=== PATIENT | female | born 1985 | race Hispanic/Latino ===

== ENCOUNTER 2017-08-23 01:17 | Inpatient (IN) | payer SELFPAY ==
[2017-08-23] MEDS ORDERED: Ringers Lactate 1,000 ML IV PRN (03:21)
[2017-08-23 03:47] LABS: RPR Titer ND
[2017-08-23 03:56] LABS: Absolute Lymphocytes (CBC) 2.7 K/uL (0.7-4.9); Absolute Monocytes 0.9 K/uL (0.1-1.3); Absolute Neutrophil 7.7 K/uL (1.8-8.0); Basophils % 0.3 % (0-1.3); Eosinophils % 0.9 % (0-4.4); Hematocrit 33.1 % (36.0-45.0); Lymphocytes % 23.5 % (15.3-44.8); MCH 21.7 pg (27.0-35.0); MPV 10.6 fL (7.6-11.3); Monocytes % 7.9 % (3.3-12.3); RBC Red Blood Cell Count 4.94 M/uL (3.86-4.86)
[2017-08-23 03:57] LABS: Protime INR 0.91
[2017-08-23] MEDS ORDERED: Ringers Lactate 1,000 ML IV SCH (04:00)
[2017-08-23 04:09] LABS: ALT/SGPT 13 U/L (12-78); AST/SGOT 17 U/L (15-37); Albumin 2.8 g/dL (3.4-5.0); Alkaline Phosphatase 200 U/L (45-117); BUN Blood Urea Nitrogen 12 mg/dL (7-18); Bicarbonate 24 mmol/L (21-32); Bilirubin Direct < 0.1 mg/dL (0-0.2); Bilirubin Total 0.3 mg/dL (0.2-1.0); Glucose Level 76 mg/dL (74-106); Potassium 3.6 mmol/L (3.5-5.1); Protein, Total 6.7 g/dL (6.4-8.2); Sodium Level 141 mmol/L (136-145); Uric Acid 4.1 mg/dL (2.6-6.0)
[2017-08-23 04:49] LABS: Blood Morphology Comment NOTED (NOT SEEN); Hypochromasia 1+; Platelet Estimate ADEQ; Polychromasia 1+; Target Cells 1+; Urine White Blood Cell Casts OK
[2017-08-23] MEDS ORDERED: OXYTOCIN/LR 20 UNIT/1,000 ML BAG IV SCH (05:00)
[2017-08-23 06:02] VITALS: BMI 39.6
[2017-08-23] MEDS ORDERED: PROMETHAZINE 25 MG/ML VIAL IV PRN (07:49)
[2017-08-23] MEDS ORDERED: METHYLERGONOVINE 0.2MG/ML AMP IM PRN (07:49)
[2017-08-23] MEDS ORDERED: CARBOPROST TROME 250 MCG/ML IM PRN (07:49)
[2017-08-23] MEDS ORDERED: BUTORPHANOL 1 MG/ML INJ IV PRN (07:49)
[2017-08-23] MEDS ORDERED: LIDOCAINE 2% 20 ML MDV IV ONE (07:50)
[2017-08-23] MEDS ORDERED: Oxycodone HCl/Acetaminophen 1 TAB TAB PO PRN (12:02)
[2017-08-23] MEDS ORDERED: ONDANSETRON 4 MG (ODT) TAB PO PRN (12:02)
[2017-08-23] MEDS ORDERED: ACETAMINOPHEN 500 MG TAB PO PRN (12:02)
[2017-08-23] MEDS ORDERED: DOCUSATE NA/SENNA CONC 1 TAB PO PRN (12:02)
[2017-08-23] MEDS ORDERED: IBUPROFEN 200 MG TAB PO PRN (12:02)
[2017-08-23] MEDS ORDERED: BISACODYL 10 MG RECTAL SUPP RECT PRN (12:02)
[2017-08-23] MEDS ORDERED: Ringers Lactate 2,000 ML IV ONE (12:15)
[2017-08-23] MEDS ORDERED: OXYTOCIN/LR 20 UNIT/1,000 ML BAG IV ONE (12:16)
--- NOTE | 2017-08-23 12:57 | HP ---
Date of Admission: 08/23/2017 History Of Present Illness: Maryana is a 32-year-old, 6, para 2-1-2-3, who presents at 36 w eeks and 6 days gestation with spontaneous rupture of membranes. The patient states that she began e xperiencing leakage of fluid in the middle of the night around midnight, presented to [facility] around 1:30, and was noted to be grossly ruptured. At that time, patient was found to be 1 cm di lated, 50% effaced, -3 station. Patient reports mild contractions. Denies vaginal bleeding. Report s good movement. course has been complicated by history of prior for wh ich she was placed on Bernie weekly injections, however, due to cost and lack of insurance she was un able to pay for these. She has history of prior 3 vaginal births. History see record for f urther details. Past Medical History: Negative. Past Surgical History: Vaginal delivery x3. Social History: to the father of the baby. No tobacco, alcohol, or drug use. Family History: Diabetes mellitus, hypertension, and depression. Physical Examination: Vital Signs: On admission, blood pressure 131/75, pulse of 81, respirations 18. The patient is afeb rile. General: Patient resting comfortably in bed. Head and Neck: Normocephalic, atraumatic. Neck is supple. Heart: Regular rate and rhythm. Respiratory: Symmetric nonlabored breathing. Abdomen: Gravid. Extremities: Bilateral lower extremities. No clubbing, cyanosis, or edema. Vaginal: Normal external genitalia. Vagina is pink, moist, normal rugae. Cervix is 2 cm dilated, 5 0% effaced, minus-3 station. Grossly ruptured. Vertex presentation. heart rate monitoring [facility] heart rate is 145. Accelerations noted. Moderate variability. Category 2 tracing. To co irregular contractions. Pitocin has been started. Now contractions are beginning to be every 2-3 minutes. GBS is negative. White blood cell count 11.3, hemoglobin 10.7, hematocrit 33.1, platelet count 212. Assessment/plan: Maryana is a 32-year-old, 6, para 2-1-2-3 at 36 weeks and 6 days gestation . GBS negative. With spontaneous rupture of membranes. Pitocin has been started for labor augmenta tion. Patient declines epidural. Pain management as needed. Anticipate vaginal . OBBBY Voice ID: [id number]
[2017-08-23 20:49] LABS: RPR (Rapid Plasma Reagin) NON-REACT (NON-REACT)
--- NOTE | 2017-08-23 22:01 | P.OP ---
Date of Service: 08/23/17 Findings and Operative Technique Patient delivered a viable male in cephalic presentationon 08/23/17 at 11: 50AM with a nuchal cord x1 that was easily manually reduced. Once infant was delivered nose and mouth were suctioned with a suction bulb and cord was clamped and cut. was then placed on mother's abdomen for skin to skin bonding. Attention was then turned to the placenta which was removed with gentle traction. Placenta was examined and noted to be intact. Attention was then turned to the midline laceration which was injected with 2% xylocaine and then repaired with a 3.0 vicryl in usual fashion. EBL was 300 cc. Patient tolerated all procedures well. APGARS were 8/9. Weight was found to be 5 lbs 14 ounces. First stage of labor was 12 hours Second stage of labor was 3 minutes.
[2017-08-24 04:45] LABS: Absolute Lymphocytes (CBC) 2.9 K/uL (0.7-4.9); Absolute Monocytes 1.1 K/uL (0.1-1.3); Absolute Neutrophil 9.5 K/uL (1.8-8.0); Basophils % 0.3 % (0-1.3); Eosinophils % 0.9 % (0-4.4); Hematocrit 27.6 % (36.0-45.0); MPV 10.3 fL (7.6-11.3); Monocytes % 8.2 % (3.3-12.3); RBC Red Blood Cell Count 4.09 M/uL (3.86-4.86)
[2017-08-24 04:52] LABS: MCV 67.5 fL (80-100)
[2017-08-24] MEDS ORDERED: Tdap (Diph,Pertuss(Acell),Tet Vac) 0.5 ML SYR IMVAC ONE (08:47)
[2017-08-24 11:51] VITALS: BP 142/82; TEMP 97.9
--- NOTE | 2017-08-24 22:19 | P.DS ---
Admission Date: 08/23/17 Discharge Date: 08/25/17 Disposition: ROUTINE DISCHARGE Discharge Condition: GOOD Brief History of Present Illness: see h&p Hospital Course: Patient did well following delivery. Her BP is in normal range. Her pain is well controlled. No issues. Bonding well with the baby. Vital Signs/Physical Exam: Temp Pulse Resp BP Pulse Ox 97.9 F 93 H 18 142/82 H 08/24/17 11:50 08/24/17 11:50 08/24/17 11:50 08/24/17 11:50 General: Alert, In no apparent distress HEENT: Atraumatic Neck: Supple Respiratory: Normal air movement Cardiovascular: No edema, Normal pulses Gastrointestinal: Soft and benign (fundus firm) Musculoskeletal: No clubbing, No swelling Integumentary: No rashes, No breakdown Neurological: Normal gait, Normal speech Laboratory Data at Discharge: WBC 13.7 K/uL (4.3-10.9) H D 08/24/17 04:16 Hgb 9.0 g/dL (12.0-15.0) L 08/24/17 04:16 Hct 27.6 % (36.0-45.0) L D 08/24/17 04:16 Plt Count 190 K/uL (152-406) 08/24/17 04:16 PT 10.7 SECONDS (9.5-12.5) 08/23/17 02:45 INR 0.91 08/23/17 02:45 APTT 30.1 SECONDS (24.3-36.9) 08/23/17 02:45 Sodium 141 mmol/L (136-145) 08/23/17 02:45 Potassium 3.6 mmol/L (3.5-5.1) 08/23/17 02:45 BUN 12 mg/dL (7-18) 08/23/17 02:45 Creatinine 0.50 mg/dL (0.55-1.3) L 08/23/17 02:45 Glucose 76 mg/dL (74-106) 08/23/17 02:45 Uric Acid 4.1 mg/dL (2.6-6.0) 08/23/17 02:45 Total Bilirubin 0.3 mg/dL (0.2-1.0) 08/23/17 02:45 AST 17 U/L (15-37) 08/23/17 02:45 ALT 13 U/L (12-78) 08/23/17 02:45 Alkaline Phosphatase 200 U/L (45-117) H 08/23/17 02:45 Home Medications: Vit/Iron Fumarate/FA [ Tablet] 1 each PO DAILY 07/05/14 Valacyclovir HCl [Valtrex] 1 tab PO BID 08/23/17 Diet: Regular Activity: No lifting more than 10 lbs
[2017-08-26 03:01] LABS: HBsAG Nonreactive (Nonreactive)
== END 2017-08-24 17:05 | disposition home or self-care (01) | DRG 775 ==
LOC: 2ND-WC 01:17
PROVIDERS: ADMIT Student in an Organized Health Care Education/Training Program; ATTEND Student in an Organized Health Care Education/Training Program
PROC: 10E0XZZ Delivery of Products of Conception, External Approach (ICD-10-PCS; principal; 2017-08-23)
PROC: 0HQ9XZZ Repair Perineum Skin, External Approach (ICD-10-PCS; 2017-08-23)
DX: O69.81X0 Labor and delivery complicated by cord around neck, without compression, not applicable or unspecified (principal); O42.013 Preterm premature rupture of membranes, onset of labor within 24 hours of rupture, third trimester; O70.9 Perineal laceration during delivery, unspecified; Z3A.36 36 weeks gestation of pregnancy; Z37.0 Single live birth; Z91.040 Latex allergy status; Z23 Encounter for immunization
CPT/HCPCS: 36415; 80048; 80076; 84550; 85025; 85610; 85730; 86592; 86850; 86900; 86901; 87340; 88307; 90715; J0595; J2210; J2550; J2590